=== PATIENT | female | born 1950 | race Caucasian/White ===

== ENCOUNTER 2020-06-17 10:41 | Day surgery (SDC) | payer MEDICARE, SELFPAY ==
--- NOTE | 2020-06-16 11:49 | HO.ANESPROP2 ---
Documented by User: Therese Dacosta 06/16/20 11:49 HPI - Anesthesia Eval Consult details Narrative: 69yo F for Upper Endoscopy and Colonoscopy PMFSH Past Medical History Medical History (Updated 06/16/20 @ 10:24 by Xin Araiza RN) ADD (attention deficit disorder) Anemia Back pain GERD (gastroesophageal reflux disease) Scoliosis Surgical History Surgical History (Updated 06/16/20 @ 10:25 by Xin Araiza, RN) History of esophagogastroduodenoscopy (EGD) History of total abdominal hysterectomy Hx of colonoscopy Hx of cosmetic surgery Hx of gastric bypass Social History Social History Smoking Status: Never smoker Use of substances other than those prescribed or required for medical reasons: No Advance Directives: No Advance Directives Information Provided: Yes Advance Directives on File: No Meds Allergies Allergy/AdvReac Type Severity Reaction Status Date / Time amoxicillin AdvReac aches Verified 06/16/20 10:27 Home Medications Medication Instructions Recorded Confirmed Type Vitamin C 06/16/20 06/16/20 History dextroamphetamine-amphetamine 2 tab PO BID 06/16/20 06/17/20 History [Adderall] ferrous sulfate [iron] 325 mg PO DAILY 06/16/20 06/16/20 History multivitamin 1 tab PO DAILY 06/16/20 06/16/20 History trazodone 1 tab PO BEDTIME 06/16/20 06/16/20 History Exam Exam Date and Time: June 16, 2020 1149 Assessment and Plan Assessment Anesthesia Assessment: Chart Reviewed Documented by User: Jose Lima 06/17/20 12:12 PMFSH Past Medical History Medical History (Updated 06/16/20 @ 10:24 by Xin Araiza RN) ADD (attention deficit disorder) Anemia Back pain GERD (gastroesophageal reflux disease) Scoliosis Surgical History Surgical History (Updated 06/16/20 @ 10:25 by Xin Araiza RN) History of esophagogastroduodenoscopy (EGD) History of total abdominal hysterectomy Hx of colonoscopy Hx of cosmetic surgery Hx of gastric bypass Social History Social History Smoking Status: Never smoker Use of substances other than those prescribed or required for medical reasons: No Advance Directives: No Advance Directives Information Provided: Yes Advance Directives on File: No Meds Allergies Allergy/AdvReac Type Severity Reaction Status Date / Time amoxicillin AdvReac aches Verified 06/16/20 10:27 Home Medications Medication Instructions Recorded Confirmed Type Vitamin C 06/16/20 06/16/20 History dextroamphetamine-amphetamine 2 tab PO BID 06/16/20 06/17/20 History [Adderall] ferrous sulfate [iron] 325 mg PO DAILY 06/16/20 06/16/20 History multivitamin 1 tab PO DAILY 06/16/20 06/16/20 History trazodone 1 tab PO BEDTIME 06/16/20 06/16/20 History Exam Airway Mallampati Class: II TM Dist: >3cm Neck ROM: Full Heart: RRR Assessment and Plan Assessment Anesthesia Assessment: Anesthesia Plan Discussed Final Anesthetic Review NPO: Yes ASA Class: II Final Preanesthetic Review: Consent Obtained/Reviewed Anesthetic Plan Anesthetic Plan: MAC: Disposition: Standard PACU
[2020-06-17 10:49] VITALS: BMI 22.2
[2020-06-17 11:06] VITALS: BP 117/82; PULSE 95; RESP 18; TEMP 36.7; O2SAT 100
[2020-06-17] MEDS: Lactated Ringers 1,000 ML 100 ML IVCONT (11:18)
[2020-06-17 13:26] VITALS: BP 102/64; PULSE 75; RESP 18; TEMP 36.5; O2SAT 99
--- NOTE | 2020-06-17 13:26 | PM.OP ---
Brief Operative Note Date of Service: 06/17/20 Pre-op diagnosis: Iron deficiency anemia Post-op diagnosis: other (Erosive esophagitis, Diverticulosis, Internal hemorrhoids) Procedure: EGD with biopsies, Colonoscopy to cecum and TI Surgeon: Myron Mercado Anesthesia: MAC Estimated blood loss (mL): 4.0 Pathology: other (A. EG Junction at 32cm) Condition: stable Disposition: PACU
[2020-06-17 13:41] VITALS: BP 110/63; PULSE 74; RESP 13; TEMP 36.5; O2SAT 100
--- NOTE | 2020-06-17 14:28 | HO.POSTANES ---
Post Anesthesia Evaluation Post Anesthesia Evaluation Vital Signs: Vital Signs Temp Pulse Resp BP Pulse Ox 06/17/20 13:41 97.7 F 74 13 110/63 100 06/17/20 13:26 97.7 F 75 18 102/64 99 06/17/20 11:06 98.1 F 95 18 117/82 100 Anesthesia: Monitored Mental Status: Awake Pain Control: Satisfactory Nausea/Vomiting: None Hydration: Adequate Anesthesia-Related Issues: No Anes. Related Issues
--- NOTE | 2020-06-17 14:33 | OP_ITS ---
SURGEON: Myron Mercado MD INDICATIONS: The patient presents for evaluation of iron-deficiency anemia. Full consent has been obtained from her for this, including risks of bleeding and perforation. PREOPERATIVE DIAGNOSIS: Iron-deficiency anemia. POSTOPERATIVE DIAGNOSIS: PROCEDURE PERFORMED: Esophagogastroduodenoscopy with biopsies, and colonoscopy to cecum and terminal ileum. ESTIMATED BLOOD LOSS: COMPLICATIONS: ANESTHESIA: Monitored anesthesia care. ASSISTANTS: SPECIMENS: POSTOPERATIVE DIAGNOSES: Iron-deficiency anemia, erosive esophagitis, diverticulosis, and internal hemorrhoids. DESCRIPTION OF PROCEDURE: The patient was placed in the left lateral decubitus position. The Olympus video gastroscope was passed in the posterior oropharynx and upper esophagus under direct vision. The scope was passed slowly to the distal esophagus. The gastroesophageal junction was seen at 32 cm. At this level, was evidence of an erosive esophagitis with friability, erosions, and erythema. There was no definitive evidence of Khan's mucosa nor any lesions. The scope was entered into the stomach. There was a small amount of coffee-grounds material in the stomach. There was a small hiatal hernia. The scope was advanced through the anastomosis from her previous gastric bypass. The anastomosis appeared normal and was widely patent. The small bowel mucosa appeared normal. I did not visualize any sign of anastomotic ulcer. The scope was withdrawn back in the gastric remnant. The gastric remnant mucosa both in the forward viewing and retroflexed positions appeared normal. Scope was withdrawn back into the esophagus. Biopsies were obtained at the area of erosive esophagitis at 32 cm. Proximal to this, the esophageal mucosa appeared normal. The scope was withdrawn from the patient. She was turned around for colonoscopy. The digital rectal exam revealed no abnormalities. The Olympus video pediatric colonoscope was entered into the rectum and advanced easily to the cecum. Once in the cecum, I did identify normal-appearing cecal pouch with appendiceal orifice and a normal-appearing ileocecal valve. The terminal ileum was cannulated and appeared normal. Scope was withdrawn back in the colon. The entire cecum and ileocecal valve appeared normal. The scope was then slowly withdrawn assessing all mucosal surfaces carefully. For the most part, preparation was very good to excellent throughout the colon, although there was some small areas of stool, which were irrigated and suctioned away. I did not visualize any sign of polyps, colitis, nor angiodysplasia. There was a mild amount of sigmoid diverticulosis. In the rectum, scope was retroflexed visualizing internal hemorrhoids, but no other pathology. The scope was straightened out and withdrawn from the patient. She tolerated the procedure well and was returned to the recovery area in stable condition. IMPRESSION: 1. Erosive esophagitis. 2. Hiatal hernia. 3. Normal gastric remnant and anastomosis. 4. Diverticulosis. 5. Internal hemorrhoids. PLAN: The results of the biopsies will be checked. I do suspect her finding of esophagitis is related to bile reflux, but I shall start her on omeprazole 20 mg daily as well as a Carafate suspension. She was advised to resume her iron. I do suspect the iron deficiency is in relation to the findings within the esophagus. I would recommend a repeat colonoscopy in 5 years for further screening given the previous history of tubular adenomas. She was advised to see me in 2 to 3 months for a followup visit as well. This has been discussed with her . She is also advised to avoid all aspirin and NSAIDs. MD WILLAM Juarez/ANTONINO / [phone]
== END 2020-06-17 14:15 | disposition home or self-care (01) ==
PROVIDERS: PCP Family Medicine; Visit Provider Internal Medicine
PROC: (CPT 45378; principal; 2020-06-17 11:50)
DX: D50.9 Iron deficiency anemia, unspecified (principal); Z86.010 Personal history of colon polyps; K57.30 Diverticulosis of large intestine without perforation or abscess without bleeding; K64.8 Other hemorrhoids; K21.9 Gastro-esophageal reflux disease without esophagitis; K22.10 Ulcer of esophagus without bleeding; K44.9 Diaphragmatic hernia without obstruction or gangrene; Z98.84 Bariatric surgery status; F98.8 Other specified behavioral and emotional disorders with onset usually occurring in childhood and adolescence; M41.9 Scoliosis, unspecified; Z98.0 Intestinal bypass and anastomosis status
CPT/HCPCS: 45378; 43239; 88305

== ENCOUNTER 2024-11-05 16:56 | Emergency (ER) | payer MEDICARE, SELFPAY ==
--- NOTE | ~2024-11-05 | CT_ITS ---
CLINICAL HISTORY: lower abdominal pain. black stool CT abdomen and pelvis with and without contrast Comparison: None Findings: No acute finding in the partially visualized lung bases. Mild mesenteric edema and small volume free fluid in the abdomen and pelvis. No bowel obstruction. Moderate colonic fecal retention. Diffuse colonic diverticulosis. No findings of diverticulitis. No acute finding of the solid abdominal visceral structures. Normal gallbladder and bile ducts. No aortic aneurysm. No fracture or suspicious bone lesion. IMPRESSION: Colonic fecal retention without evidence of acute colitis or obstruction. Small volume free fluid in the abdomen is nonspecific. This document has been electronically signed by: Raphael Pineda MD on 11/06/2024 00:21:33
--- NOTE | 2024-11-05 17:12 | ED.ABDPAIN ---
HPI - Abdominal Pain General Chief Complaint: GI Bleed Stated Complaint: abd pain, abn stool Time Seen by Provider: 11/05/24 21:30 Source: patient Mode of arrival: ambulatory Limitations: no limitations History of Present Illness ED Provider: Dmitri Kate HPI narrative: 74-year-old female history of gastritis, scoliosis, ADHD and gastric bypass presents to ED for lower abdominal pain and black stool. patient is afraid the black stool is blood. Patient denies being on any blood thinners. Patient states due to her having lower abdominal pain yesterday morning she took Pepto-Bismol then had 2 episodes of black stool. Patient denies any recent trauma. Related Data Home Medications ?Medication ?Instructions ?Recorded ?Confirmed Vitamin C 06/16/20 06/16/20 dextroamphetamine-amphetamine 20 2 tab PO BID 06/16/20 06/17/20 mg tablet (Adderall) ferrous sulfate 325 mg (65 mg 325 mg PO DAILY 06/16/20 06/16/20 iron) tablet (iron) multivitamin 1 tab PO DAILY 06/16/20 06/16/20 trazodone 150 mg tablet 1 tab PO BEDTIME 06/16/20 06/16/20 Allergies Allergy/AdvReac Type Severity Reaction Status Date / Time No Known Allergies Allergy Verified 11/05/24 17:16 Review of Systems Review of Systems Lower abdominal pain, black stool Yes all other systems are reviewed and are negative PMF Past Medical History Medical History (Updated 11/07/24 @ 00:00 by Clarita Soares) Back pain Scoliosis Anemia GERD (gastroesophageal reflux disease) ADD (attention deficit disorder) Surgical History (Updated 06/16/20 @ 10:25 by Xin Araiza RN) Hx of cosmetic surgery History of total abdominal hysterectomy Hx of gastric bypass History of esophagogastroduodenoscopy (EGD) Hx of colonoscopy Physical Exam ED Vital Signs: Vital Signs - 24 hr 11/05/24 17:13 11/05/24 17:14 11/05/24 23:13 Temperature 98.4 F 98.1 F 98.1 F Pulse Rate 97 66 80 Respiratory Rate 97 H 13 19 Blood Pressure 136/99 H 150/87 H 135/78 Pulse Oximetry 97 97 99 Oxygen Delivery Method Room Air Room Air Room Air BMI result Body Mass Index 19.9 Const General: cooperative, healthy appearing, comfortable, no acute distress, well developed, alert, awake and Physically active Orientation/consciousness: patient oriented x3 HENME Head: Yes normal to inspection, Yes No palpable skull fracture present, Yes normocephalic, Yes atraumatic and No abrasion Eyes General: appearance normal, both eyes and all related structures Neck Neck: Yes normal visual inspection, Yes full ROM, Yes no lymphadenopathy, Yes no meningeal signs, Yes trachea midline, Yes supple, No anterior neck swelling and No tender Chest Chest palpation & inspection: normal inspection of the chest and normal palpation of entire chest wall Resp Effort & Inspection: normal respiratory effort and able to speak in complete sentences Auscultation: clear to auscultation bilaterally Cardio Jugular venous distension: no JVD Heart sounds: S1 normal heart sound present and S2 normal heart sound present GI Other: rectal exam negative for any black stool, bright red blood, or melena Inspection: Yes normal to inspection Palpation (GI): Soft to palpation, not firm, Tenderness to palpation present (GI) in the LLQ and in the RLQ, no guarding and not rigid General: Yes no CVA tenderness Back/Spine/Pelvis Back: no CVA tenderness and No back tenderness Skin General skin exam: no rashes or lesions noted, elasticity normal and turgor normal Neuro General: patient oriented x3, gait normal, tone normal, moves all extremities, Normal light touch and pain sensation, no meningeal signs, no focal motor deficits, CN's II-XI intact bilaterally and normal sensation to monofilament Extrem General: Yes normal to inspection, Yes full ROM and Yes capillary refill normal Psych Appearance: grossly normal, well kempt and not disheveled Course Course Course Narrative: This is a Rapid Medical Exam performed in triage by Leena Davis PA-C. Full HPI, ROS and PE to be performed by primary ED provider. 74 yo F w/PMHx anemia, GERD, ADD, s/p gastric bypass (about 20yrs ago) presenting to the ED c/o abdominal pain x this AM w/coffee ground/black stool x2 episodes. +nausea/vomiting. PE: abdomen soft w/mild lower ttp. no rebound or guarding Plan: labs, UA, occult stool Medical Decision Making Medical Decision Making MDM Narrative: 74-year-old female presents to the ED for lower abdominal pain and black stool. Patient admits to using Pepto-Bismol. Patient has history of gastritis. Patient has history of GERD. Patient is sent for abdominal CT scan. Patient receiving fluids. Protonix ordered. 12:36am: Patient's repeat H and H is stable. Patient did not have any vomiting blood or rectal bleeding episode generally ED. occurred stool guaiac is negative. CT scan GI bleed negative for any colitis or active bleeding. Just shows small free fluid nonspecific. Abdomen is benign. Patient's vital signs stable. patient informed to follow up with senior reliability engineer and primary care provider. Not suspecting GI bleed. 1:40am: Patient explained worrisome signs and informed to return to the ED immediately. Abdomen is benign nontender. Patient was sleeping comfortably in the bed. Not suspecting abdominal perforation, peritonitis, GI bleed, toxic megacolon, or any other life-threatening etiology. Not suspecting [place]. not suspecting small bowel obstruction. Ct Scan reviewed with Dr. Tolentino who states patient is not having GI bleed and small free fluid in CT scan does not indicate GI Bleed. patient explained worrisome signs and informed to return to the ED immediately. Pepto-Bismol can cause black stool Differential Diagnosis Differential Diagnoses: The differential diagnosis associated with the presentation includes ( colitis, GI bleed) Admission/Observation Consideration of admission/observation: Escalation of care including admission/observation considered Lab Data MDM Lab Attestation statement: I reviewed the patient's lab results. 11/05/24 22:48 11/05/24 17:49 Labs: Lab Results 11/05/24 11/05/24 11/05/24 Range/Units 17:49 22:05 22:48 WBC 7.6 8.0 (4.8-10.8) X10*3/uL RBC 4.76 4.32 (4.20-5.50) X10*6/uL Hgb 14.4 13.2 (12.0-16.0) g/dl Hct 44.4 38.5 (37.0-47.0) % MCV 93.3 89.1 (80.0-98.0) fL MCH 30.3 30.6 (27.0-33.0) pg MCHC 32.4 34.3 (31.0-35.0) g/dl RDW 13.2 13.2 (11.0-16.0) % Plt Count 293 270 (160-400) X10*3/uL MPV 10.1 10.1 (9.4-12.3) fL Immature Gran % (Auto) 0.4 0.4 (0.0-0.4) % Neut % (Auto) 80.2 H 83.3 H (45-73) % Lymph % (Auto) 10.1 L 7.5 L (20-40) % [place] % (Auto) 7.7 7.4 (2-11) % Eos % (Auto) 1.2 1.0 (0-4) % Baso % (Auto) 0.4 0.4 (0-2) % Lymph # (Auto) 0.8 L 0.6 L (1.2-4.9) X10*3/uL [place] # (Auto) 0.6 0.6 (0.1-1.2) X10*3/uL Eos # (Auto) 0.1 0.1 (0.0-0.4) X10*3/uL Baso # (Auto) 0.0 0.0 (0.0-0.2) X10*3/uL Abs Immat Gran (auto) 0.03 0.03 (0.00-0.03) X10*3/uL Absolute Neuts (auto) 6.1 6.6 (2.0-8.3) x10*3/uL Absolute Nucleated RBC 0.000 0.000 (0.0-0.012) X10*3/uL Nucleated RBC % (auto) 0.0 0.0 (0.0-0.2) /100WBC Sodium 140 (135-145) mmol/L Potassium 4.8 (3.3-5.1) mmol/L Chloride 106 (96-108) mmol/L Carbon Dioxide 27 (22-29) mmol/L Anion Gap 12 (12-20) BUN 15 (9-16) mg/dL Creatinine 0.63 (0.5-1.4) mg/dL Estim Creat Clear Calc 67.0 Estimated GFR > 60 Random Glucose 135 H (60-115) mg/dL Calcium 10.2 (8.4-10.2) mg/dL Magnesium 1.7 (1.6-2.6) mg/dL Total Bilirubin 0.4 (0.0-1.0) mg/dL Direct Bilirubin 0.1 (0.0-0.5) mg/dL AST 20 (5-31) U/L ALT 13 (0-31) U/L Alkaline Phosphatase 196 H (39-117) U/L Total Protein 6.9 (6.5-8.0) g/dL Albumin 4.2 (3.5-5.0) g/dL Lipase 7 L (8-78) U/L Urine Color Urine Appearance Urine pH (5.0-9.0) Ur Specific [place] (1.005-1.025) Urine Protein (Neg-Trace) mg/dL Urine Glucose (UA) (Negative) mg/dL Urine Ketones (Negative) mg/dL Urine Blood (Negative) Urine Nitrite (Negative) Ur Leukocyte Esterase (Negative) Stool Occult Blood NEGATIVE (NEGATIVE) 11/05/24 Range/Units 23:49 WBC (4.8-10.8) X10*3/uL RBC (4.20-5.50) X10*6/uL Hgb (12.0-16.0) g/dl Hct (37.0-47.0) % MCV (80.0-98.0) fL MCH (27.0-33.0) pg MCHC (31.0-35.0) g/dl RDW (11.0-16.0) % Plt Count (160-400) X10*3/uL MPV (9.4-12.3) fL Immature Gran % (Auto) (0.0-0.4) % Neut % (Auto) (45-73) % Lymph % (Auto) (20-40) % [place] % (Auto) (2-11) % Eos % (Auto) (0-4) % Baso % (Auto) (0-2) % Lymph # (Auto) (1.2-4.9) X10*3/uL [place] # (Auto) (0.1-1.2) X10*3/uL Eos # (Auto) (0.0-0.4) X10*3/uL Baso # (Auto) (0.0-0.2) X10*3/uL Abs Immat Gran (auto) (0.00-0.03) X10*3/uL Absolute Neuts (auto) (2.0-8.3) x10*3/uL Absolute Nucleated RBC (0.0-0.012) X10*3/uL Nucleated RBC % (auto) (0.0-0.2) /100WBC Sodium (135-145) mmol/L Potassium (3.3-5.1) mmol/L Chloride (96-108) mmol/L Carbon Dioxide (22-29) mmol/L Anion Gap (12-20) BUN (9-16) mg/dL Creatinine (0.5-1.4) mg/dL Estim Creat Clear Calc Estimated GFR Random Glucose (60-115) mg/dL Calcium (8.4-10.2) mg/dL Magnesium (1.6-2.6) mg/dL Total Bilirubin (0.0-1.0) mg/dL Direct Bilirubin (0.0-0.5) mg/dL AST (5-31) U/L ALT (0-31) U/L Alkaline Phosphatase (39-117) U/L Total Protein (6.5-8.0) g/dL Albumin (3.5-5.0) g/dL Lipase (8-78) U/L Urine Color Yellow Urine Appearance Clear Urine pH 6.5 (5.0-9.0) Ur Specific [place] >= 1.030 H (1.005-1.025) Urine Protein Negative (Neg-Trace) mg/dL Urine Glucose (UA) Negative (Negative) mg/dL Urine Ketones 15 (Negative) mg/dL Urine Blood Negative (Negative) Urine Nitrite Negative (Negative) Ur Leukocyte Esterase Negative (Negative) Stool Occult Blood (NEGATIVE) Independent Interpretation I performed an independent interpretation of an: CT Scan Radiology Impression Discussion of test interpretation with radiology: I have reviewed the radiologist's reading. Independent Historian Clinical information obtained from an independent historian. History obtained from or confirmed by: Other Medications Administered Discontinued Medications Generic Name Dose Route Start Last Admin Trade Name Freq PRN Reason Stop Dose Admin Sodium Chloride 1,000 mls @ 999 mls/hr 11/05/24 22:25 11/06/24 00:51 Ns IV 11/05/24 23:25 Infused .Q1H1M STA Infusion Iohexol 100 ml 11/05/24 23:08 11/05/24 23:08 Iohexol 350 Mg/Ml 100 Ml Infus..Btl IV 11/05/24 23:09 80 ml ONCE ONE Administration Pantoprazole Sodium 40 mg 11/05/24 22:40 11/05/24 23:10 Pantoprazole Sodium 40 Mg/10 Ml Vial IVPUSH 11/05/24 22:41 40 mg ONCE ONE Administration Discharge Plan Discharge Clinical Impression: Abdominal pain Patient Disposition: Home, Self-Care Instructions: Abdominal Pain (ED) Additional Instructions: recommend follow up with primary care provider and senior reliability engineer. Return to the ED immediately for worsening abdominal pain, fever, chills, bloody stool, weakness, dizziness, fever, chills, blood in urine, vomiting blood, or any other concerning symptoms. CT abdomen and pelvis with and without contrast Comparison: None Findings: No acute finding in the partially visualized lung bases. Mild mesenteric edema and small volume free fluid in the abdomen and pelvis. No bowel obstruction. Moderate colonic fecal retention. Diffuse colonic diverticulosis. No findings of diverticulitis. No acute finding of the solid abdominal visceral structures. Normal gallbladder and bile ducts. No aortic aneurysm. No fracture or suspicious bone lesion. IMPRESSION: Colonic fecal retention without evidence of acute colitis or obstruction. Small volume free fluid in the abdomen is nonspecific. This document has been electronically signed by: Raphael Pineda MD on 11/06/2024 00:21:33 Dictated By: Raphael Pineda MD Signed By: <Electronically signed by Raphael Pineda MD in [place]> 11/06/24 0022 Prescriptions: No Action multivitamin Tablet 1 tab PO DAILY trazodone 150 mg tablet 1 tab PO BEDTIME ferrous sulfate [iron] 325 mg (65 mg iron) Tablet 325 mg PO DAILY dextroamphetamine-amphetamine [Adderall] 20 mg tablet 2 tab PO BID Vitamin C Referrals: [facility] [Provider Group] ( abdominal pain. History of GERD) Stand Alone Forms: Work/School Release Interventions: ED Discharge Assessment Last Done: 11/06/24 02:09 Discharge Date/Time: 11/06/24 06:25 Print Language: [employer]
[2024-11-05 17:13] VITALS: BP 136/99; PULSE 97; RESP 97; TEMP 36.9; O2SAT 97; BMI 19.9
[2024-11-05 17:14] VITALS: BP 150/87; PULSE 66; RESP 13; TEMP 36.7; O2SAT 97
[2024-11-05 17:52] LABS: MANUAL DIFF FLAG NO
[2024-11-05 17:59] LABS: Basophils Percent Auto 0.4 % (0-2); Eosinophils Absolute Auto 0.1 X10*3/uL (0.0-0.4); Eosinophils Percent Auto 1.2 % (0-4); Hematocrit 44.4 % (37.0-47.0); Hemoglobin 14.4 g/dl (12.0-16.0); Imm Gran Abs Auto 0.03 X10*3/uL (0.00-0.03); Imm Gran Pct Auto 0.4 % (0.0-0.4); Lymphocytes Absolute Auto 0.8 X10*3/uL (1.2-4.9); Lymphocytes Percent Auto 10.1 % (20-40); Mean Corpuscular HGB Conc 32.4 g/dl (31.0-35.0); Mean Corpuscular Hemoglobin 30.3 pg (27.0-33.0); Mean Corpuscular Volume 93.3 fL (80.0-98.0); Mean Platelet Volume 10.1 fL (9.4-12.3); Monocytes Absolute Auto 0.6 X10*3/uL (0.1-1.2); Monocytes Percent Auto 7.7 % (2-11); Neutrophils Absolute Auto 6.1 x10*3/uL (2.0-8.3); Neutrophils Percent Auto 80.2 % (45-73); Platelet Count 293 X10*3/uL (160-400); Red Blood Count 4.76 X10*6/uL (4.20-5.50); Red Cell Distribution Width 13.2 % (11.0-16.0); White Blood Count 7.6 X10*3/uL (4.8-10.8)
[2024-11-05 18:10] LABS: Alanine Aminotransferase 13 U/L (0-31); Albumin Level 4.2 g/dL (3.5-5.0); Alkaline Phosphatase 196 U/L (39-117); Anion Gap 12 (12-20); Aspartate Amino Transferase 20 U/L (5-31); Bilirubin Direct 0.1 mg/dL (0.0-0.5); Bilirubin Total 0.4 mg/dL (0.0-1.0); Blood Urea Nitrogen 15 mg/dL (9-16); Calcium 10.2 mg/dL (8.4-10.2); Carbon Dioxide 27 mmol/L (22-29); Chloride 106 mmol/L (96-108); Estimated Glomerular Filt Rate > 60; Glucose Random 135 mg/dL (60-115); Lipase 7 U/L (8-78); Magnesium 1.7 mg/dL (1.6-2.6); Potassium 4.8 mmol/L (3.3-5.1); Sodium 140 mmol/L (135-145); Total Protein 6.9 g/dL (6.5-8.0)
[2024-11-05 22:47] LABS: OBS Int Ctl Valid YES; OBS1 NEGATIVE (NEGATIVE)
[2024-11-05] MEDS: 0.9 % Sodium Chloride 1,000 ML 999 ML IV (22:48)
[2024-11-05 22:57] LABS: MANUAL DIFF FLAG NO
[2024-11-05 23:01] LABS: Basophils Percent Auto 0.4 % (0-2); Eosinophils Absolute Auto 0.1 X10*3/uL (0.0-0.4); Hematocrit 38.5 % (37.0-47.0); Hemoglobin 13.2 g/dl (12.0-16.0); Imm Gran Abs Auto 0.03 X10*3/uL (0.00-0.03); Imm Gran Pct Auto 0.4 % (0.0-0.4); Lymphocytes Absolute Auto 0.6 X10*3/uL (1.2-4.9); Lymphocytes Percent Auto 7.5 % (20-40); Mean Corpuscular HGB Conc 34.3 g/dl (31.0-35.0); Mean Corpuscular Hemoglobin 30.6 pg (27.0-33.0); Mean Corpuscular Volume 89.1 fL (80.0-98.0); Mean Platelet Volume 10.1 fL (9.4-12.3); Monocytes Absolute Auto 0.6 X10*3/uL (0.1-1.2); Monocytes Percent Auto 7.4 % (2-11); Neutrophils Absolute Auto 6.6 x10*3/uL (2.0-8.3); Neutrophils Percent Auto 83.3 % (45-73); Platelet Count 270 X10*3/uL (160-400); Red Blood Count 4.32 X10*6/uL (4.20-5.50); Red Cell Distribution Width 13.2 % (11.0-16.0)
[2024-11-05] MEDS: iohexoL 350 MG/ML 100 ML INFUS..BTL IV (23:08)
[2024-11-05] MEDS: Pantoprazole Sodium 40 MG/10 ML VIAL IVPUSH (23:10)
[2024-11-05 23:13] VITALS: BP 135/78; PULSE 80; RESP 19; TEMP 36.7; O2SAT 99
[2024-11-05 23:57] LABS: Appearance Urine Clear; Color Urine Yellow; Glucose Urine UA Negative (Negative); Leukocyte Esterase Urine Negative (Negative); Nitrite Urine Negative (Negative); PH 6.5 (5.0-9.0); Specific Gravity - Urine >= 1.030 (1.005-1.025); Urine Blood Negative (Negative); Urine Ketones 15 mg/dL (Negative); Urine Protein Negative (Neg-Trace)
[2024-11-06 02:00] VITALS: BP 107/71; PULSE 82; RESP 16; TEMP 36.7; O2SAT 96
[2024-11-06 02:09] VITALS: BP 107/71; PULSE 82; RESP 16; TEMP 36.7; O2SAT 96
== END 2024-11-06 06:25 | disposition home or self-care (01) ==
PROVIDERS: Physician Assistant; Emergency Provider Emergency Medicine; PCP Family Medicine
DX: R10.9 Unspecified abdominal pain (principal); R11.0 Nausea; Z98.84 Bariatric surgery status; Z79.899 Other long term (current) drug therapy
CPT/HCPCS: 36415; 74178; 80048; 80076; 81003; 82272; 83690; 83735; 85025; 96361; 96374; 99284; J2470; Q9967

== ENCOUNTER → 2024-11-05 22:40 | Outpatient (BNV) | payer MEDICARE, SELFPAY | PROVIDERS: Emergency Provider Emergency Medicine; PCP Family Medicine; Visit Provider Radiology Diagnostic Radiology | DX: K56.41 Fecal impaction (principal) | CPT/HCPCS: 74178 ==

== ENCOUNTER 2025-04-23 10:48 | Day surgery (SDC) | payer MEDICARE, SELFPAY ==
--- OUTSIDE RECORDS SUMMARY | 2024-03-11 17:35 | XMS_ITS | Encounter Summary ---
Author Organization [facility] Address [address] [place] [address] [place] [phone] Phone Care Team Providers Care Miner Helper Name Role Phone Lucien Woo MD Unavailable Heather Vieyra MD Primary Care Provider + Encounter Details Date Type Department Care Team (Late st Contact Info) Description 03/11/2024 5:35 PM EDT Hospital Encounter [facility] [address] [place] [id number] [address], [address] [place] [address] [email or web address] Social History Tobacco Use Types Packs/Day Years Used Date Smoking Tobacco: Former Cigarettes 1 10 Smokeless Tobacco: Never Alcohol Use Standard Drinks/Week Comments Yes 0 (1 standard drink = 0.6 oz pur e alcohol) Education Answer Date Recorded Are you interested in more education? Not on corby e 11/23/2022 Are you concerned about learning? Not on file 11/23/2022 No 11/23/2022 No 11/23/2022 Digital Access Answer Date Recorded No 12/24/2022 No 12/24/2022 Reliable internet access at home? Not on file 12/24/2022 Device with a working camera? Not on file Intimate Partner Violence Answer Date R ecorded Are you denied basic needs s uch as food, clothing, or medical care? No 11/12/2024 In the past 12 months have y ou been in a relationship with a person who hurts, threatens, or tries to control you? No 11/12/2024 Are you denied basic needs s uch as food, clothing, or medical care? No 11/12/2024 In the past 12 months have y ou been in a relationship with a person who hurts, threatens, or tries to control you? No 11/12/2024 Comments No Sex and Gender Information Value Date Recorded Sex Assigned at Female 06/19/2018 6:04 PM EST Legal Sex Female 10:02 PM EDT Gender Identity Female 06/19/2018 6:04 PM EST Sexual Orientation Straight 06/19/2018 6: 04 PM EST documented as of this encounter Functional Status * Calculated C-SSRS Risk Score (Lifetime/Recent) Answer Date of Assessment Author No Risk Indicated 11/12/2024 7:58 PM EDT Janel Burk RN * [place] Suicide Severity Rating Scale (Screener/Recent Self-Report) Question Answer Date of Assessment Author 1. Wish to be (Past 1 Month) No 025 7:58 PM EDT Janel Rivera RN 2. Non-Specific Active Suici malvin Thoughts (Past 1 Month) No 11/12/2024 7:58 PM EDT Tara Rivera ra RN 6. Suicidal Behavior (Lifetime) No 7:58 PM EDT Janel Rivera RN documented as of this encounter Plan of Treatment Not on file documented as of this encounter Procedures Procedure Name Priority Date/Time Associated Diagnosis Comments XR KNEE 4 OR MORE VIEWS (RIGHT) Urgent/patient waiting 03/11/2024 5:57 PM EDT Acute pain of right knee documented in this encounter Results * XR KNEE 4 OR MORE VIEWS (RIGHT) (03/11/2024 5:57 PM EDT) Anatomical Region Laterality Modality Knee Right Computed Radiogr aphy 03/11/2024 6:12 PM EDT Impressions 03/11/2024 6:15 PM EDT No fracture or dislocation. Narrative 03/11/2024 6:15 PM EDT XR KNEE 4 OR MORE VIEWS (RIGHT) Referring clinician's provided indication for this examination in Epic: Pain; Trauma COMPARISON: None FINDINGS: Right Knee: No fracture. Normal alignment. Diffuse osteopenia. Mild age-related degenerative changes in the left knee joint. Procedure Note Jose Fowler MD, CRYSTAL - 03/11/2024 XR KNEE 4 OR MORE VIEWS (RIGHT) Referring clinician's provided indication for this examination in Epic:Pain; Trauma COMPARISON: None FINDINGS: Right Knee: No fracture. Normal alignment. Diffuse osteopenia. Mildage-related degenerative changes in the left knee joint. IMPRESSION: No fracture or dislocation. Mavis Crow BRAID CUTTER IMG XR LOWER EXTREMITY Fin al Result documented in this encounter Visit Diagnoses Not on filedocumented in this encounter Care Teams Miner Helper Relationship Specialty Start Date End Date Heather Vieyra MD [email or web address] - General Family Medicine 03/11/24 09/01/24 Lucien Woo MD [email or web address] LMR Provider 05/16/17 documented as of this encounter Additional Source Comments The information contained in this document represents components of the legal health record. It is not the complete legal health record.[facility]
[2025-04-21 14:07] VITALS: BMI 18.9
--- NOTE | 2025-04-22 13:32 | HO.ANESPROP2 ---
HPI - Anesthesia Eval Consult details Narrative: 74 yr old female for colonoscopy PMF Past Medical History Medical History (Updated 11/07/24 @ 00:00 by Clarita Soares) Back pain Scoliosis Anemia GERD (gastroesophageal reflux disease) ADD (attention deficit disorder) Surgical History Surgical History (Updated 06/16/20 @ 10:25 by Xin Araiza RN) Hx of cosmetic surgery History of total abdominal hysterectomy Hx of gastric bypass History of esophagogastroduodenoscopy (EGD) Hx of colonoscopy Meds Allergies Allergy/AdvReac Type Severity Reaction Status Date / Time No Known Allergies Allergy Verified 11/05/24 17:16 Home Medications ?Medication ?Instructions ?Recorded ?Confirmed ?Last Taken ?Type ferrous sulfate 325 mg (65 mg 325 mg PO DAILY 06/16/20 04/21/25 Unknown History iron) tablet (iron) multivitamin 1 tab PO DAILY 06/16/20 04/21/25 Unknown History trazodone 150 mg tablet 1 tab PO BEDTIME 06/16/20 04/21/25 Unknown History acetaminophen 325 mg tablet 650 mg PO Q6H PRN Pain 04/21/25 04/21/25 Unknown History ascorbic acid (vitamin C) 500 mg 500 mg PO DAILY 04/21/25 04/21/25 Unknown History tablet (Vitamin C) cholecalciferol (vitamin D3) 25 25 mcg PO DAILY 04/21/25 04/21/25 Unknown History mcg (1,000 unit) capsule (Vitamin D3) dexmethylphenidate 40 mg 40 mg PO QAM 04/21/25 04/21/25 Unknown History capsule,extended release [id number] duloxetine 60 mg capsule,delayed 60 mg PO DAILY 04/21/25 04/21/25 Unknown History release ibuprofen 200 mg tablet 400 mg PO Q8H PRN Pain 04/21/25 04/21/25 Unknown History naproxen sodium 220 mg tablet 220 mg PO Q12H PRN Pain 04/21/25 04/21/25 Unknown History (Aleve) omeprazole 20 mg capsule,delayed 20 mg PO DAILY 04/21/25 04/21/25 Unknown History release topiramate 25 mg tablet 12.5 - 25 mg PO BEDTIME 04/21/25 04/21/25 Unknown History Exam Height,Weight and Vital Signs: Height 5 ft 6.5 in Weight 53.796 kg
--- OUTSIDE RECORDS SUMMARY | 2025-04-22 15:31 | XMS_ITS | Patient Health Record ---
Author Organization [facility] Address [address] [place] [id number] Care Team Providers Care Fitness Management Director Name Role Phone Heather Vieyra Primary Care Provider Myron Butler [phone] Allergies Allergen (clinical drug ingredient) Drug/Non Drug Allergy documented on EMR Reaction Allergy Type Onset Date Status amoxicillin Amoxicillin achey Drug Allergy Act renée Reason For Referral No Information Medications Medication SIG (Take, Route, Frequency, Duration) Notes Start Date End Date Status Aleve 220 MG 1 tablet with food o r milk as needed Orally every 12 hrs Active Vitamin D-3 25 MCG (1000 UT) 1 capsule O rally Once a day Active Dexmethylphenidate HCl ER 40 MG 1 capsule in the morning Orally Once a day Active DULoxetine HCl 60 MG 1 capsule Orally On ce a day Active Multi Vitamin/Minerals Active Vitamin C Active Ibuprofen 200 MG 1 tablet with food o r milk as needed Orally Three times a day Active Topiramate 25 MG Oral for 37 A ctive Tylenol 325 MG 1 tablet as needed Orally every 6 hrs Active Omeprazole 20 MG TAKE 1 CAPSULE BY MOUTH EVERY MORNING for 90 Active traZODone HCl 150 MG 1 tablet at bedtime Orally as directed Active Iron 325 (65 Fe) MG Orally Active Immunizations Vaccine Route Administration Date Status Comme nts Influenza Unknown 05/15/2022 Administered Influenza Unknown 04/14/2024 Administered Problems Problem Type SNOMED Code ICD Code Onset Dates Problem Status W/U Status Risk Notes Problem Colon cancer screening (124962755) Colon cancer screening (Z12.11) Active confirmed Problem Constipation (38208658) Constipation (K59.00) Active confirmed Problem Iron deficiency anemia (63942802) Iron deficiency anemia (D50.9) Active confirmed Problem Preprocedural examination (096404727437327) Preprocedural examination (Z01.818) Active confirmed Problem Erosive esophagitis (69615829) Erosive esophagitis (K22.10) Active confirmed Problem 24359320 Constipation, unspecified constipation type (K59.00) Active confirmed Problem Gastroesophageal reflux disease (506647267) GERD (gastroesophagea l reflux disease) (K21.9) Active confirmed Problem History of adenomatous polyp of colon (429596477) History of adenomatous polyp of colon (Z86.0101) Active confirmed Vital Signs Temperature 97.8 degrees Fahrenheit 01/20/2025 Blood pressure diastolic 01 mm Hg 01/20/2025 Height 66.5 in 01/20/2025 Blood pressure systolic 001 mm Hg 01/20/2025 Weight 118.6 lbs 01/20/2025 BMI 18.85 kg/m2 01/20/2025 Procedures Procedure Date Ordered Date Performed Result Body Sit e COLONOSCOPY 01/20/2025 N/A Encounters Encounter Location Date Provider Diagnosis [facility] [address] [place] [phone] 01/20/2025 Myron Mercado History of adenomato us polyp of colon Z86.0101 ; GERD (gastroesophageal reflux disease) K21.9 ; Colon cancer screening Z12.11 ; Preprocedural examination Z01.818 and Constipation K59.00 [facility] [address] [place] [phone] 12/09/2024 Myron Mercado Assessments Encounter Date Diagnosis (ICD Code) Assessment Notes Treatment Notes Treatment Clinical Notes Section Notes 01/20/2025 GERD (gastroesophageal reflux disease) (ICD-10 - K21.9) Overall, Levar appears well and is not having any new or worrisome GI complaints. Her bowel movements seem to be somewhat more regular than in the past when she was having significant constipation. Given her previous history of tubular adenomas of the colon and her last colonoscopy being just about 5 years ago, I did recommend a follow-up colonoscopy for further screening purposes. We did review the rationale for this in regard to colon cancer prevention. Full consent has been obtained from her for the procedure, including risks of bleeding and perforation. The procedure will be done with monitored anesthesia care. She will have a 2-day prep to achieve a good cleanout as she has had problems in the past with a single day prep resulting in a poor cleanout and suboptimal colonoscopy. She was given the below instructions regarding adjustment of her medication for the procedure. Her previous history of reflux and esophagitis seem to be clinically stable on her current regimen of her PPI. She is not having any symptoms or other problems to suggest the need for repeat upper endoscopy at this time. While she has had her previous bariatric surgery and theoretically does not make much, if any, acid in her stomach, I shall leave her on the PPI as that seems to be working well for her at this time. Levar was comfortable with this plan. Thank you again for allowing me to participate in Levar's care. I shall continue to keep you advised of her progress. 01/20/2025 History of adenomatous polyp of colon (ICD-10 - Z86.0101) Overall, Levar appears well and is not having any new or worrisome GI complaints. Her bowel movements seem to be somewhat more regular than in the past when she was having significant constipation. Given her previous history of tubular adenomas of the colon and her last colonoscopy being just about 5 years ago, I did recommend a follow-up colonoscopy for further screening purposes. We did review the rationale for this in regard to colon cancer prevention. Full consent has been obtained from her for the procedure, including risks of bleeding and perforation. The procedure will be done with monitored anesthesia care. She will have a 2-day prep to achieve a good cleanout as she has had problems in the past with a single day prep resulting in a poor cleanout and suboptimal colonoscopy. She was given the below instructions regarding adjustment of her medication for the procedure. Her previous history of reflux and esophagitis seem to be clinically stable on her current regimen of her PPI. She is not having any symptoms or other problems to suggest the need for repeat upper endoscopy at this time. While she has had her previous bariatric surgery and theoretically does not make much, if any, acid in her stomach, I shall leave her on the PPI as that seems to be working well for her at this time. Levar was comfortable with this plan. Thank you again for allowing me to participate in Levar's care. I shall continue to keep you advised of her progress. 01/20/2025 Colon cancer screening (ICD-10 - Z12.11) Overall, Levar appears well and is not having any new or worrisome GI complaints. Her bowel movements seem to be somewhat more regular than in the past when she was having significant constipation. Given her previous history of tubular adenomas of the colon and her last colonoscopy being just about 5 years ago, I did recommend a follow-up colonoscopy for further screening purposes. We did review the rationale for this in regard to colon cancer prevention. Full consent has been obtained from her for the procedure, including risks of bleeding and perforation. The procedure will be done with monitored anesthesia care. She will have a 2-day prep to achieve a good cleanout as she has had problems in the past with a single day prep resulting in a poor cleanout and suboptimal colonoscopy. She was given the below instructions regarding adjustment of her medication for the procedure. Her previous history of reflux and esophagitis seem to be clinically stable on her current regimen of her PPI. She is not having any symptoms or other problems to suggest the need for repeat upper endoscopy at this time. While she has had her previous bariatric surgery and theoretically does not make much, if any, acid in her stomach, I shall leave her on the PPI as that seems to be working well for her at this time. Levar was comfortable with this plan. Thank you again for allowing me to participate in Levar's care. I shall continue to keep you advised of her progress. 01/20/2025 Preprocedural examination (ICD-10 - Z01.818) Overall, Levar appears well and is not having any new or worrisome GI complaints. Her bowel movements seem to be somewhat more regular than in the past when she was having significant constipation. Given her previous history of tubular adenomas of the colon and her last colonoscopy being just about 5 years ago, I did recommend a follow-up colonoscopy for further screening purposes. We did review the rationale for this in regard to colon cancer prevention. Full consent has been obtained from her for the procedure, including risks of bleeding and perforation. The procedure will be done with monitored anesthesia care. She will have a 2-day prep to achieve a good cleanout as she has had problems in the past with a single day prep resulting in a poor cleanout and suboptimal colonoscopy. She was given the below instructions regarding adjustment of her medication for the procedure. Her previous history of reflux and esophagitis seem to be clinically stable on her current regimen of her PPI. She is not having any symptoms or other problems to suggest the need for repeat upper endoscopy at this time. While she has had her previous bariatric surgery and theoretically does not make much, if any, acid in her stomach, I shall leave her on the PPI as that seems to be working well for her at this time. Levar was comfortable with this plan. Thank you again for allowing me to participate in Levar's care. I shall continue to keep you advised of her progress. 01/20/2025 Constipation (ICD-10 - K59.00) Overall, Levar appears well and is not having any new or worrisome GI complaints. Her bowel movements seem to be somewhat more regular than in the past when she was having significant constipation. Given her previous history of tubular adenomas of the colon and her last colonoscopy being just about 5 years ago, I did recommend a follow-up colonoscopy for further screening purposes. We did review the rationale for this in regard to colon cancer prevention. Full consent has been obtained from her for the procedure, including risks of bleeding and perforation. The procedure will be done with monitored anesthesia care. She will have a 2-day prep to achieve a good cleanout as she has had problems in the past with a single day prep resulting in a poor cleanout and suboptimal colonoscopy. She was given the below instructions regarding adjustment of her medication for the procedure. Her previous history of reflux and esophagitis seem to be clinically stable on her current regimen of her PPI. She is not having any symptoms or other problems to suggest the need for repeat upper endoscopy at this time. While she has had her previous bariatric surgery and theoretically does not make much, if any, acid in her stomach, I shall leave her on the PPI as that seems to be working well for her at this time. Levar was comfortable with this plan. Thank you again for allowing me to participate in Levar's care. I shall continue to keep you advised of her progress. Plan Of Treatment Pending Test Test Name Order Date COLONOSCOPY 01/20/2025 IRON + IBC (FE) 08/23/2020 FERRITIN 08/23/2020 FERRITIN 05/17/2020 VITAMIN B12 AND FOLATE 05/17/2020 CBC w DIFF 08/23/2020 CBC w DIFF 05/17/2020 Future Test Test Name Order Date COLONOSCOPY 05/03/2011 UPPER GI ENDOSCOPY 05/17/2020 COLONOSCOPY 05/17/2020 Next Appt Details Provider Name:Myron Mercado , 04/23/2025 10:30:00 AM, [address] [place] [address] , [place], [place], [id number], Insurance Providers Payer Name Payer Address Payer Phone Subscriber Number Group Number Insured Name Patient Relationship to Insured Coverage Start Date Coverage End Date MEDICARE OF [place] [address] [place] [address] [id number] KRISTIAN PINON Self - patient is the insured [employer] CLAIMS [address] [place] [address] [phone] [id number] KRISTIAN PINON Self - patient is the insured Medical (General) History Medical History History ICD Code ADD Tubular adenomas removed in 1997 and 2005 with me- her colonoscopy with me in 2010 was negative for polyps GERD-EGD in 2005 showed a HH and some es ophagitis Denies MT,DM,CVA,Lung disease,renal dise ase Colonoscopy in summer 2018 at [facility] was henson boptimal due to a poor prep Iron def anemia seen in 04/2020-started Iron Scoliosis Back pain- uses a [employer] system Colonoscopy in 05/2020 was normal Upper endoscopy in 05/2020 r evealed erosive esophagitis. Biopsies were negative for Khan's esophagus. There was a small hiatal hernia. The anastomosis from her previous bariatric surgery was normal. Migraine Normal CT of abdomen and pel vis in December of 2022 other than some constipation Vertigo Surgical History Surgery Date(Month/Year) Right hip surgery for a fracture from a fall Left hip replacement PAULETTE Other cosmetic surgery Gastric bypass surgery 2005 in [place]- l ost > 160_#
--- OUTSIDE RECORDS SUMMARY | 2025-04-22 15:31 | XMS_ITS | Encounter Summary ---
Author Organization [facility] Address [address] [place] [id number] Phone Care Team Providers Care Credit And Collections Representative Name Role Phone Lucien Woo MD Unavailable Adrian Padron MD Unavailable [phone] Levar Moreland MD Unavailable [phone] Lucien Woo MD Primary Care Provider [phone] Pcp, Unknown Primary Care Provider Unavailabl e Heather Vieyra MD Primary Care Provider + Heather Vieyra MD Primary Care Provider + Heatehr Vieyra MD Primary Care Provider + Encounter Details Date Type Department Care Team (Late st Contact Info) Description 01/14/2019 Procedure Pass [facility] Endoscopy Admitting Dept Virtual Department [address] [place] [phone] Social History Tobacco Use Types Packs/Day Years Used Date Smoking Tobacco: Never Smokeless Tobacco: Never Alcohol Use Standard Drinks/Week Comments Yes 0 (1 standard drink = 0.6 oz pur e alcohol) Rare Comments Unknown Sex and Gender Information Value Date Recorded Sex Assigned at Female 06/19/2018 6:04 PM EST Legal Sex Female 10:02 PM EDT Gender Identity Female 06/19/2018 6:04 PM EST Sexual Orientation Straight 06/19/2018 6: 04 PM EST documented as of this encounter Plan of Treatment Not on file documented as of this encounter Visit Diagnoses Not on filedocumented in this encounter Additional Health Concerns Infection Onset Date Last Indicated Resolved Time CoV-Exposed Comment:Recent close contact documented in the Travel/Symptom Screening Form 02/02/2022 02/13/2022 1:22 AM E DT CoV-Risk Comment:Neg covid 08/08/2022 08/08/2022 08/09/2022 7:[address] documented as of this encounter Care Teams Credit And Collections Representative Relationship Specialty Start Date End Date Lucien Woo MD [email or web address] PCP - General 08/01/17 01/04/23 Pcp, Unknown PCP - General 01/05/23 03/10/24 Heather Vieyra MD [email or web address] PCP - General Family Medicine 03/11/24 09/01/24 Heather Vieyra MD [address] [place] [phone] [email or web address] PCP - General Family Medicine 09/02/24 12/13/24 Heather Vieyra MD [address] [place] [address] [email or web address] PCP - General Family Medicine 12/14/24 Lucien Woo MD [email or web address] Historical LMR Provider 05/16/17 Adrian Padron MD [address] [place] [address], [address] [address] [email or web address] Historical LMR Provider 05/16/17 08/05/21 Levar Moreland MD [address] [place] [phone] Historical LMR Provider 05/16/17 2 documented as of this encounter Additional Source Comments The information contained in this document represents components of the legal health record. It is not the complete legal health record.[facility]
--- OUTSIDE RECORDS SUMMARY | 2025-04-22 15:32 | XMS_ITS | Encounter Summary ---
Author Organization [facility] Address [address] [place] [address] Phone Care Team Providers Care Break Off Worker Name Role Phone Lucien Woo MD Unavailable Heather Vieyra MD Primary Care Provider + Heather Vieyra MD Primary Care Provider + Encounter Details Date Type Department Care Team (Late st Contact Info) Description 09/03/2024 Procedure Pass [place] Admitting Dept - Virtual Department [address] [place] [address] Social History Tobacco Use Types Packs/Day Years [...] as food, clothing, or medical care? No 09/02/2024 In the past 12 months have y ou been in a relationship with a person who hurts, threatens, or tries to control you? No 09/02/2024 Are you denied basic needs s uch as food, clothing, or medical care? No 09/02/2024 In the past 12 months have y ou been in a relationship with a person who hurts, threatens, or tries to control you? No 09/02/2024 Comments No Sex and Gender Information Value [...] on filedocumented in this encounter Care Teams Break Off Worker Relationship Specialty Start Date End Date Heather Vieyra MD [address] [place] [phone] PCP - General Family Medicine 09/02/24 12/13/24 Heather Vieyra MD [address] [place] [address] PCP - General Family Medicine 12/14/24 Lucien Woo MD [email or web address] Historical LMR Provider 05/16/17 documented as of this encounter Additional Source Comments The information contained in this document represents components of the legal health record. It is not the complete legal health record.[facility]
--- OUTSIDE RECORDS SUMMARY | 2025-04-22 15:32 | XMS_ITS | Encounter Summary ---
Author Organization [facility] Address [address] [place] [phone] Phone Care Team Providers Care Quality Coordinator Name Role Phone Lucien Woo MD Unavailable Pcp, Unknown Primary Care Provider UnavailHeather Hardy MD Primary Care Provider + Heather Vieyra MD Primary Care Provider + Heather Vieyra MD Primary Care Provider + Encounter Details Date Type Department Care Team (Late st Contact Info) Description 01/05/2023 Procedure Pass [facility], Ct Scan - [address] [address] Social History Tobacco Use Types Packs/Day Years [...] as food, clothing, or medical care? No 01/05/2023 In the past 12 months have y ou been in a relationship with a person who hurts, threatens, or tries to control you? No 01/05/2023 Are you denied basic needs s uch as food, clothing, or medical care? No 01/05/2023 In the past 12 months have y ou been in a relationship with a person who hurts, threatens, or tries to control you? No 01/05/2023 Comments No Sex and Gender Information Value Date Recorded Sex Assigned at Female 06/19/2018 6:04 PM EST Legal Sex Female 10:02 PM EDT Gender Identity Female 06/19/2018 6:04 PM EST Sexual Orientation Straight 06/19/2018 6: 04 PM EST documented as of this encounter Functional Status * Calculated C-SSRS Risk Score (Lifetime/Recent) Answer Date of Assessment Author No Risk Indicated 01/05/2023 9:13 PM EDT Ovidio Schwartz RN * [place] Suicide Severity Rating Scale (Screener/Recent Self-Report) Question Answer Date of Assessment Author 1. Wish to be (Past 1 Month) No 023 9:13 PM EDT Ovidio Schwartz RN 2. Non-Specific Active Suici malvin Thoughts (Past 1 Month) No 01/05/2023 9:13 PM EDT Jhon Schwartz RN 6. Suicidal Behavior (Lifetime) No 9:13 PM EDT Ovidio Schwartz, RN documented as of this encounter Plan of Treatment Not on file documented as of this encounter Visit Diagnoses Not on filedocumented in this encounter Care Teams Quality Coordinator Relationship Specialty Start Date End Date Pcp, Unknown PCP - General 01/05/23 03/10/24 Heather Vieyra MD [email or web address] PCP - General Family Medicine 03/11/24 09/01/24 Heather Vieyra MD [address] [place] [phone] [email or web address] PCP - General Family Medicine 09/02/24 12/13/24 Heather Vieyra MD [address] [place] [phone] [email or web address] PCP - General Family Medicine 12/14/24 Lucien Woo MD [email or web address] Historical LMR Provider 05/16/17 documented as of this encounter Additional Source Comments The information contained in this document represents components of the legal health record. It is not the complete legal health record.[facility]
--- OUTSIDE RECORDS SUMMARY | 2025-04-22 15:32 | XMS_ITS | Clinical Summary ---
Author Organization Located Within [facility] Address [address] [place] [address] Phone Care Team Providers Care Conservation Worker Name Role Phone Renetta Woo MD Unavailable Heather Vieyra MD Primary Care Provider + Allergies Active Allergy Reactions Criticality Noted Date Comments Pollen Extracts Sneezing 03/26/2022 Medications dextroamphetami ne-amphetamine (ADDERALL) 20 mg Tab tablet Take 40 mg by mouth 2 (two) times a day. Active traZODone (DESYREL) 50 MG tablet Take 150 mg by mouth nightly at bedtime. Active albuterol 90 mcg/actuation inhalerIndicati ons:Uses Pro Air rarely Inhale 2 puffs into the lungs as needed for wheezing. Indications: Uses Pro Air rarely Active multivit with minerals/lutein (MULTIVITAMIN 50 PLUS ORAL) Active bacillus coagulans-inuli n 1 billion-250 cell-mg Cap Take 250 mg by mouth daily. Active vitamins A,C,E-zinc-danuta er (PRESERVISION AREDS) 14,320-226-200 lcoz-ng-rzht Cap Take 1 capsule by mouth 2 (two) times a day with meals. Active Medication-Free Text Lion's jason 1x daily Active Medication-Free Text virtron c Active DULoxetine (CYMBALTA) 60 MG capsule Take 60 mg by mouth daily. Active aspirin 325 MG tablet Take 1 tablet (325 mg total) by mouth daily for 28 days. 28 tablet 5 Active docusate sodium (COLACE) 100 MG capsule Take 1 capsule (100 mg total) by mouth 2 (two) times a day. 14 capsule Active Additional Information Patient not taking.Reported on 11/13/2024 omeprazole (PRILOSEC) 20 MG capsule Take 1 capsule (20 mg total) by mouth every morning. 60 capsule Active oxyCODONE 5 MG immediate release tablet Take 1 tablet (5 mg total) by mouth every 4 (four) hours as needed for pain (specific location in comments) (hip). Partial fill ok 8 tablet Active Additional Information Patient not taking.Reported on 09/18/2024 acetaminophen (TYLENOL) 325 mg tablet Take 3 tablets (975 mg total) by mouth every 8 (eight) hours as needed for pain (specific location in comments). Active topiramate (TOPAMAX) 25 MG tablet TAKE 1/2 TO 1 TABLET BY MOUTH EVERY NIGHT AT BEDTIME Active Active Problems Problem Noted Date Diagnosed Date Constipation 11/13/2024 Iron deficiency anemia 11/13/2024 Vitamin D deficiency 11/13/2024 EPIFANIO (acute kidney injury) 09/04/2024 Assessment & Plan (09/04/2024 11:06 AM EST): EPIFANIO postoperatively likely secondary to prerenal azotemia due to dehydration from decreased p.o. intake perioperatively. Baseline creatinine 0.6, creatinine 1.0. Patient also noted to have hyperkalemia plan for normal saline infusion and Kayexalate 09/04. -Repeat lab work this afternoon -Continue to monitor renal function -Avoid nephrotoxic agents -Consider nephrology consult if no improvement Closed nondisplaced intertro chanteric fracture of right femur, initial encounter 09/02/2024 Assessment & Plan (09/04/2024 11:03 AM EST): S/P mechanical fall on 09/02: CT revealed acute comminuted and mildly distracted intertrochanteric right femoral fracture status post mechanical fall at home -Has underlying history of osteoporosis, not on current medication, history of left hip arthroplasty as well On 09/03/2024 pt underwent: OPEN REDUCTION INTERNAL FIXATION FRACTURE FEMUR INTERTROCHANTERIC-Synthes trochanteric femoral nail, 12 diameter, 170 length, 105 mm helical blade lag, 36 mm distal interlock screw with Dr. Biggs. Pain control adequate at this time Scheduled Tylenol. Bowel regimen ordered DVT proph ASA 325 mg daily PT/OT Assessment & Plan (09/03/2024 3:14 PM EST): -CT revealed acute comminuted and mildly distracted intertrochanteric right femoral fracture status post mechanical fall at home -Has underlying history of osteoporosis, not on current medication, history of left hip arthroplasty as well Plan: - s/p OPEN REDUCTION INTERNAL FIXATION FRACTURE FEMUR INTERTROCHANTERIC-Synthes trochanteric femoral nail, 12 diameter, 170 length, 105 mm helical blade lag, 36 mm distal interlock screw on 09/03/[address] Biggs. Pain control adequate at this time Scheduled Tylenol. Bowel regimen ordered ASA 325 mg daily Assessment & Plan (09/02/2024 3:28 PM EST): -CT revealed acute comminuted and mildly distracted intertrochanteric right femoral fracture status post mechanical fall at home -Has underlying history of osteoporosis, not on current medication, history of left hip arthroplasty as well Plan: Orthopedic surgery consulted recommended n.p.o. after midnight for possible surgical repair CBC and BMP are relatively unremarkable, no prior cardiac history at this time Pain control adequate at this time, will place oxycodone 5 mg as needed for breakthrough pain Scheduled Tylenol. Thyroid nodule 08/08/2022 Assessment & Plan (08/08/2022 9:00 PM EST): Outpatient ultrasound can be pursued. 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 Overview (09/02/2024): sees prescriber Assessment & Plan (09/04/2024 7:35 AM EST): Adderall 40 mg twice daily, follows with psychiatry Underlying history of dementia is also on Cymbalta Plan: Continue Adderall Cymbalta 60 mg daily Assessment & Plan (09/03/2024 3:54 PM EST): Is on Adderall 40 mg twice daily, follows with psychiatry Underlying history of dementia is also on Cymbalta Plan: Continue Adderall Cymbalta 60 mg daily Assessment & Plan (09/02/2024 3:28 PM EST): Is on Adderall 40 mg twice daily, follows with psychiatry Underlying history of dementia is also on Cymbalta although does not know the dose at this time Plan: Continue Adderall, verify Cymbalta dose prior to resuming Gastroesophageal reflux disease 10/01/2006 Pure hypercholesterolemia 10/01/2006 Breast lump 05/08/2005 Osteoporosis 04/23/2005 Overview (11/13/2024): dr joel Morbid obesity 12/17/2002 Overview (11/13/2024): resolved after gastric bypass Removal Reason: resolved Primary osteoarthritis of left hip Resolved Problems Problem Noted Date Diagnosed Date Resolved Date Dizziness 08/08/2022 08/09/2022 Assessment & Plan (08/08/2022 8:54 PM EST): Concern for TIA/CVA from ED physician and neurology. We will give aspirin and statin. We will check an MRI brain. Will monitor on telemetry. Also, likely that this is related to her new CBD Gummies that she just started today. She states that the strength is the same, but it was a different package than her normal. Additionally, she states that her did not feel well after taking them. She will have as needed nausea medications. Immunizations Immunization Administration Dates Next Due Td (adult),2 Lf Tetanus Toxoid, PF, Adsorbed 02/2023 Family History Medical History Relation Comments Heart disease Father Diabetes Mother Relation Status Comments Father Mother Social History Tobacco Use Types Packs/Day Years Used Date Smoking Tobacco: Former Cigarettes 1 10 Smokeless Tobacco: Never Tobacco Cessation:Counseling Given: Not Answered Alcohol Use Standard Drinks/Week Comments Yes 0 [...] Orientation Straight 06/19/2018 6: 04 PM EST Last Filed Vital Signs Vital Sign Reading Time Taken Comments Blood Pressure 121/78 11/13/2024 5:37 PM EDT Pulse 85 11/13/2024 5:37 PM EDT Temperature 36.8 C (98.3 F) 11/13/2024 5:37 PM EDT Respiratory Rate 16 11/13/2024 5:37 PM EDT Oxygen Saturation 100% 11/13/2024 5:37 PM EDT Inhaled Oxygen Concentration - - Weight 57.6 kg (127 lb) 11/13/2024 5:37 PM EDT Height 165.1 cm (5' 5 ) 11/13/2024 5:37 PM EDT Body Mass Index 21.13 11/13/2024 5:37 PM EDT Plan of Treatment Health Maintenance Due Date Last Done Comments DEPRESSION SCREENING 1962 SMOKING Hx and SMOKELESS TOBACCO SCREENING 1963 HEPATITIS C SCREENING 1968 COLOGUARD 1995 FIT TEST 1995 FOBT 1995 SIGMOIDOSCOPY 1995 VIRTUAL COLONOSCOPY 1995 MAMMOGRAM 12/01/2009 12/02/2007, 09/29/2007 OSTEOPOROSIS SCREENING INITIAL (ONE-TIME) 2015 INFLUENZA VACCINE (#1) 2025 , 06/07/2023, 05/15/2022, Additional history exists COVID-19 VACCINE ( season) 2025 06/05/2024, 06/27/2023, 05/15/2022, Additional history exists LIPID PANEL 08/09/2027 08/09/2022, 04/23/2005 COLONOSCOPY 01/14/2029 01/14/2019 COLORECTAL CANCER SCREENING 01/14/2029 Adult Td,Tdap Booster 06/05/2033 06/05/2023 , 09/24/2013, 03/20/2010, Additional history exists ZOSTER VACCINES Completed 08/06/2018, 10/27, 12/18/2012 PNEUMOCOCCAL VACCINES (50+ years) Completed 11/16/2021, 11/08/2017, 05/18/2015 RSV VACCINE Completed 09/16/2023 HEPATITIS A VACCINES Aged Out No long er eligible based on patient's age to complete this topic HIB VACCINES Aged Out No longer eligi ble based on patient's age to complete this topic MENINGOCOCCAL VACCINES (ACWY) Aged Out No longer eligible based on patient's age to complete this topic MENINGOCOCCAL VACCINES (B) Aged Out N o longer eligible based on patient's age to complete this topic Medical Devices Implanted Type Area Major Gifts Director Device Identifier Shelf Expiration Date Model / Serial / Lot Hip 36mm 0 G7 Marcus Type 1 Standard - [id number] Implanted:Qt y: 1 on 02/28/2021 by Jose Hamilton MD at [facility] STANDARD Left: Acetabulum [employer] 12/02/2030 [id number] / / [id number] Hip Shell 56mm Acetabular Finned G7 - [id number] Implanted:Qt y: 1 on 02/28/2021 by Jose Hamilton MD at [facility] Left: Acetabulum [employer] 08/19/2030 [id number] / / [id number] Hip Liner 36mm F Acetabular High Wall G7 Longevity - [id number] Implanted:Qt y: 1 on 02/28/2021 by Jose Hamilton MD at [facility] Left: Acetabulum [employer] 12/05/2025 [id number] / / [id number] Hip Stem 1 Size Taperloc Pps Coated Complete Reduced High Offset Type 22 - [id number] Implanted:Qt y: 1 on 02/28/2021 by Jose Hamilton MD at [facility] Left: Acetabulum [employer] 09/09/2029 [id number] / / [id number] Nail Bone [id number] Short 130deg Tfn Advanced Femoral Cannulated Ti Neck - [id number] Implanted:Qt y: 1 on 09/03/2024 by Myron Biggs MD at [facility] Right: Femur [employer] [id number] 05/28/2034 [id number] S / / [id number] Blade Bone 10.8f057ez Helical Tfn Advanced - [id number] Implanted:Qt y: 1 on 09/03/2024 by Myron Biggs MD at [facility] Right: Femur [employer] [id number] 11/25/2032 04.038.405 S / / [id number] Screw Bone 5x36mm Locking Im Nail - [id number] Implanted:Qt y: 1 on 09/03/2024 by Myron Biggs MD at [facility] Right: Femur [employer] [id number] 04/27/2032 04.045.036 S / / [id number] Procedures Procedure Name Priority Date/Time Associated Diagnosis Comments LIPID PANEL Routine 08/09/2022 6:41 AM EST ENDOSCOPY, COLON 01/14/2019 10:1 4 AM EDT from Last 3 Months or Most Recently Relevant to Health Maintenance Results * (ABNORMAL) Lipid panel (08/09/2022 6:41 AM EST) HDL 67 mg/dL [facility] Comment: Interpretation <40 mg/dL: Low HDL cholesterol (major risk factor for CHD) Greater than or equal to 60 mg/dL: High HDL cholesterol ( negative risk factor for CHD) HDL - cholesterol is affected by a number of factors, e.g. smoking, excerise, hormones, sex and age. CHOLESTEROL 175 0 - 240 mg/dL [facility] TRIGLYCERIDES 46 30 - 160 mg/dL [facility] LDL 99 50 - 129 mg/dL [facility] Comment: LDL levels in terms of risk for coronary heart disease: <100 mg/dL: Optimal 100-129 mg/dL: Near or above optimal 130-159 mg/dL: Borderline high 160-189 mg/dL: High >190 mg/dL: Very High CARDIAC RISK RATIO 2.6(L) 3.3 - 4.4 C [facility] Blood 08/09/2022 6:41 AM EST 08/09/2022 7:16 AM EST us Suleiman Bailey DO LAB BLOOD ORDERABLES Final Re sult [facility] [address] [place] [address] * ENDOSCOPY, COLON (01/14/2019 10:14 AM EDT) Narrative Transcriptions Jey Nuno MD - 01/14/2019 10:14 AM EDT Patient Name: Matildaarnoldo Leach Attending MD:: JEY NUNO MD Procedure Date: 01/14/2019 10:14 AM Date of : 1950 Age: 68 Admit Type: Outpatient Gender: Female Room: [facility] 05 Referring MD: RENETTA WOO MD Exam Type: Colonoscopy Indications: High risk colon cancer surveillance: Personal historyof colonic polyps, Surveillance: Personal history ofcolonic polyps (unknown histology) on last colonoscopy morethan 5 years ago Medications: Monitored Anesthesia Care Procedure: Informed consent was obtained from the patient after discussion of the indications, limitations,alternatives, benefits, and risks of the procedure. Risksspecifically discussed include but are not limited to medication reactions, missed lesions, bleeding, perforation, orthe need for emergent surgery. Throughout the procedure, the patient's blood pressure, pulse, end-tidal CO2, and oxygen saturations were monitored continuously. The Olympus adult variable colonoscope CF-FO536L #5 was introduced through the anus and advanced to the cecum, identified by the appendiceal orifice, ileocecal valveand palpation. The colonoscopy was performed with moderate difficulty due to inadequate bowel prep. The patient tolerated the procedure. The quality of the bowel preparation was fair. Complications: No immediate complications. Estimated blood loss:None. Findings: The digital rectal exam findings include decreased sphincter tone. A large amount of semi-liquid stool was found in the recto-sigmoid colon, in the ascending colon and in the cecum, interfering with visualization. Despiteaggressive suctioning moderate amount of stool residue remained. The exam was otherwise without abnormality on directand retroflexion views. Impression: - Preparation of the colon was fair. - Decreased sphincter tone found on digital rectalexam. - Stool in the recto-sigmoid colon, in the ascendingcolon and in the cecum. - The examination was otherwise normal on direct and retroflexion views. - No specimens collected. Recommendation: - Repeat colonoscopy in 2 years because the bowel preparation was suboptimal with 2 day prep. JEY NUNO MD 01/14/2019 10:46:04 AM This report has been signed electronically. Number of Addenda: 0 Note Initiated On: 01/14/2019 10:14 AM Procedure Code(s): --- Professional --- 64525, Colonoscopy, flexible; diagnostic, including collection of specimen(s) by brushing or washing, when performed (separateprocedure) --- Technical --- 53588, Colonoscopy, flexible; diagnostic, including collection of specimen(s) by brushing or washing, when performed (separateprocedure) Diagnosis Code(s): --- Professional --- Z86.010, Personal history of colonic polyps --- Technical --- Z86.010, Personal history of colonic polyps CPT copyright 2016 [employer]. All rights reserved. The codes documented in this report are preliminary and upon marine gear keeper reviewmay be revised to meet current compliance requirements. [address] [place] [address] Renetta Woo MD GI PROCEDURE ORDERABLES Final Re sult from Last 3 Months or Most Recently Relevant to Health Maintenance Insurance MEDICARE PART A & B [employer] CR[employer] MEDEX SUPPLEMENT MEDICARE PART A & B [employer] MEDEX SUPPLEMENT MEDICARE PART A & B [employer] MEDEX SUPPLEMENT MEDICARE PART A & B [employer] MEDEX SUPPLEMENT MEDICARE PART A & B [employer] MEDEX SUPPLEMENT MEDICARE PART A & B [facility] MEDEX SUPPLEMENT MEDICARE PART A & B [employer] MEDEX SUPPLEMENT MEDICARE PART A & B [employer] MEDEX SUPPLEMENT MEDICARE PART A & B [employer] MEDEX SUPPLEMENT Advance Directives For more information, please contact: [phone] (9AM - 5PM [facility], Saturday-Saturday) Documents on File Type Date Recorded Patient Enterprise Analyst Expl anation Power of Gerontology Aide * Full Code (Latest Code Status on File) Date Activated Date Inactivated Comments 09/02/2024 8:26 PM Question Answer Comments Code Status Confirmed With: Patient Code Status Communicated To: Inpatient Attending * Full Code Date Activated Date Inactivated Comments 08/08/2022 9:51 PM 09/02/2024 8:26 PM Question Answer Comments Code Status Confirmed With: Patient * Full Code Date Activated Date Inactivated Comments 02/28/2021 12:54 PM 08/08/2022 9:51 PM Question Answer Comments Code Status Confirmed With: Patient Code Status Communicated To: Inpatient Attending Care Teams Conservation Worker Relationship Specialty Start Date End Date Heather Vieyra MD [address] [place] [address] [email or web address] PCP - General Family Medicine 12/14/24 Renetta Woo MD Historical LMR Provider 05/16/17 Additional Source Comments The information contained in this document represents components of the legal health record. It is not the complete legal health record.Loc[facility]
--- OUTSIDE RECORDS SUMMARY | 2025-04-22 15:32 | XMS_ITS | Encounter Summary ---
Author Organization [facility] Address [address] [place] [phone] Phone Care Team Providers Care Credit Front Office Developer Name Role Phone Lucien oWo MD Unavailable Heather Vieyra MD Primary Care Provider + Heather Vieyra MD Primary Care Provider + Heather Vieyra MD Primary Care Provider + Encounter Details Date Type Department Care Team (Latest Contact Info) Description 04/08/2024 Transcribe Orders Virtual Department [address] [place] [address] Phill Horton MD [address] [place] [phone] [email or web address] Age-related osteoporosis without current pathological fracture (Primary Dx) Social History Tobacco Use Types Packs/Day Years [...] as of this encounter Plan of Treatment Scheduled Orders Name Type Priority Associated Diagnoses Orde r Schedule DXA Screening Imaging Routine Age-related osteoporosis without current pathological fracture Expected: 05/08/2024, Expires: 04/08/2025 documented as of this encounter Visit Diagnoses Diagnosis Age-related osteoporosis without current pathological fracture- Primary documented in this encounter Care Teams Credit Front Office Developer Relationship Specialty Start Date End Date Heather Vieyra MD [email or web address] PCP - General Family Medicine 03/11/24 09/01/24 Heather Vieyra MD [address] [place] [phone] [email or web address] PCP - General Family Medicine 09/02/24 12/13/24 Heather Vieyra MD [address] [place] [phone] [email or web address] PCP - General Family Medicine 12/14/24 Lucien Woo MD [email or web address] Historical LMR Provider 05/16/17 documented as of this encounter Additional Source Comments The information contained in this document represents components of the legal health record. It is not the complete legal health record.[facility]
--- OUTSIDE RECORDS SUMMARY | 2025-04-22 15:32 | XMS_ITS | Encounter Summary ---
Author Organization [facility] Address [address] [place] [phone] Phone Care Team Providers Care Furniture Dipper Name Role Phone Lucien Woo MD Unavailable Lucien Woo MD Primary Care Provider Pcp, Unknown Primary Care Provider Unavailabl e Heather Vieyra MD Primary Care Provider + Heather Vieyra MD Primary Care Provider + Heather Vieyra MD Primary Care Provider + Encounter Details Date Type Department Care Team (Late st Contact Info) Description 08/08/2022 Procedure Pass [facility], [address] [address] Social History Tobacco Use Types Packs/Day Years Used Date Smoking Tobacco: Former Cigarettes 1 10 Smokeless Tobacco: Never Alcohol Use Standard Drinks/Week Comments Yes 0 (1 standard drink = 0.6 oz pur e alcohol) Comments No Sex and Gender Information Value Date Recorded Sex Assigned at Female 06/19/2018 6:04 PM EST Legal Sex Female 10:02 PM EDT Gender Identity Female 06/19/2018 6:04 PM EST Sexual Orientation Straight 06/19/2018 6: 04 PM EST documented as of this encounter Functional Status * Calculated C-SSRS Risk Score (Lifetime/Recent) Answer Date of Assessment Author No Risk Indicated 08/08/2022 3:09 PM EST Jovana Fox RN * [place] Suicide Severity Rating Scale (Screener/Recent Self-Report) Question Answer Date of Assessment Author 1. Wish to be (Past 1 Month) No 08/08/2022 3:09 PM EST Jovana Fox, AMRIK 2. Non-Specific Active Suici malvin Thoughts (Past 1 Month) No 08/08/2022 3:09 PM EST Jovana Fox, AMRIK 6. Suicidal Behavior (Lifetime) No 3:09 PM EST Jovana Fox, AMRIK documented as of this encounter Plan of Treatment Not on file documented as of this encounter Visit Diagnoses Not on filedocumented in this encounter Additional Health Concerns Infection Onset Date Last Indicated Resolved Time CoV-Risk Comment:Neg covid 08/08/2022 08/08/2022 08/09/2022 7:[address] documented as of this encounter Care Teams Furniture Dipper Relationship Specialty Start Date End Date Lucien Woo MD [email or web address] PCP - General 08/01/17 01/04/23 Pcp, Unknown PCP - General 01/05/23 03/10/24 Heather Vieyra MD [email or web address] [email or web address] - General Family Medicine 03/11/24 09/01/24 Heather Vieyra MD [address] [place] [phone] [email or web address] - General Family Medicine 09/02/24 12/13/24 Heather Vieyra MD [address] [place] [address] [email or web address] PCP - General Family Medicine 12/14/24 Lucien Woo MD [email or web address] Historical LMR Provider 05/16/17 documented as of this encounter Additional Source Comments The information contained in this document represents components of the legal health record. It is not the complete legal health record.[facility]
--- OUTSIDE RECORDS SUMMARY | 2025-04-22 15:32 | XMS_ITS | Encounter Summary ---
Author Organization [facility] Address [address] [place] [address] Phone Care Team Providers Care Jewelry Model Maker Name Role Phone Lucien Woo MD Unavailable Lucien Woo MD Primary Care Provider [phone] Pcp, Unknown Primary Care Provider Rodney Heather Vieyra MD Primary Care Provider + Heather Vieyra MD Primary Care Provider + Heather Vieyra MD Primary Care Provider + Reason for Referral * MRI/CAT Scan - Closed Specialty Diagnoses / Procedures Referred By Forrest richardson Referred To Contact Radiology Diagnoses Ataxia Nonintractable headache, unspecified chronicity pattern, unspecified headache type Procedures MRI Brain Onesimo Juarez MD Phone: tel: fax: [email or web address] Referral ID Status Reason Start Date Expiration Date Visits Re quested Visits Authorized [id number] Closed 10/13/2021 10/13/2022 1 1 Encounter Details Date Type Department Care Team (Latest Contact Info) Description 10/13/2021 Transcribe Orders [facility] Department [address] [place] [phone] Onesimo Juarez MD [address] [place] [address], [address] [place], [place] [id number] [email or web address] Ataxia (Primary Dx); Nonintractable headache, unspecified chronicity pattern, unspecified headache type Social History Tobacco Use Types Packs/Day Years [...] on file documented as of this encounter Results * MRI BRAIN WITHOUT CONTRAST (10/31/2021 4:36 PM EDT) Anatomical Region Laterality Modality Head Magnetic Resonan ce 10/31/2021 4:38 PM EDT Impressions 10/31/2021 4:43 PM EDT Mild generalized atrophy. Otherwise normal non-enhanced MRI appearance of the brain. POS [id number] Narrative 10/31/2021 4:43 PM EDT TECHNIQUE: 1.5 Katelin scanner. Nonenhanced exam. No comparison FINDINGS: No signal changes indicative of ischemia, infarct, hemorrhage, mass, demyelinating disease or an inflammatory process. Normal ventricular size and configuration. Basilar cisterns widely patent. No cerebellar tonsillar ectopia nor signs of elevated intracranial pressure. Mild generalized atrophy is age-appropriate. No pituitary, pineal region, IAC or intraorbital pathology. Normal flow-voids in the major vessels of the [place] and the dural venous sinuses. No inflammatory changes in the paranasal sinuses or the mastoid air cells. Procedure Note Víctor Patiño MD - 10/31/2021 TECHNIQUE: 1.5 Katelin scanner. Nonenhanced exam. No comparison FINDINGS: No signal changes indicative of ischemia, infarct, hemorrhage, mass,demyelinating disease or an inflammatory process. Normal ventricular size and configuration. Basilar cisterns widely patent. No cerebellar tonsillar ectopia nor signsof elevated intracranial pressure. Mild generalized atrophy is age-appropriate. No pituitary, pineal region, IAC or intraorbital pathology. Normal flow-voids in the major vessels of the [place] and thedural venous sinuses. No inflammatory changes in the paranasal sinuses or the mastoid aircells. IMPRESSION: Mild generalized atrophy. Otherwise normal non-enhanced MRI appearance ofthe brain. POS [id number] Onesimo Juarez MD IMG MR HEAD/NECK Final Resul t documented in this encounter Visit Diagnoses Diagnosis Ataxia- Primary Lack of coordination Nonintractable headache, unspecified chronicity pattern, unspecified headache type Ataxia Lack of coordination Nonintractable headache, unspecified chronicity pattern, unspecified headache type documented in this encounter Additional Health Concerns Infection Onset Date Last Indicated Resolved Time CoV-Exposed Comment:Recent close contact documented in the Travel/Symptom Screening Form 02/02/2022 02/13/2022 1:22 AM E DT CoV-Risk Comment:Neg covid 08/08/2022 08/08/2022 08/09/2022 7:25 AM EST documented as of this encounter Care Teams Jewelry Model Maker Relationship Specialty Start Date End Date Lucien Woo MD [email or web address] PCP - General 08/01/17 01/04/23 Pcp, Unknown PCP - General 01/05/23 03/10/24 Heather Vieyra MD [email or web address] PCP - General Family Medicine 03/11/24 09/01/24 Heather Vieyra MD [address] [place] [phone] [email or web address] PCP - General Family Medicine 09/02/24 12/13/24 Heather Vieyra MD [address] [place] [phone] [email or web address] PCP - General Family Medicine 12/14/24 Lucien Woo MD [email or web address] Historical LMR Provider 05/16/17 documented as of this encounter Additional Source Comments The information contained in this document represents components of the legal health record. It is not the complete legal health record.[facility]
--- OUTSIDE RECORDS SUMMARY | 2025-04-22 15:32 | XMS_ITS | Encounter Summary ---
Author Organization [facility] Address [address] [place] [address] Phone Care Team Providers Care Residency Program Coordinator Name Role Phone Lucien Woo MD Unavailable Lucien Woo MD Primary Care Provider [phone] Pcp, Unknown Primary Care Provider Unavailabl e Heather Vieyra MD Primary Care Provider + Heather Vieyra MD Primary Care Provider + Heather Vieyra MD Primary Care Provider + Encounter Details Date Type Department Care Team (Late st Contact Info) Description 08/08/2022 Procedure Pass [facility], Ct Scan - [address] [address] Social History Tobacco Use Types Packs/Day Years [...] 3:09 PM EST Jovana Fox RN * [place] Suicide Severity Rating Scale (Screener/Recent Self-Report) Question Answer Date of Assessment Author 1. Wish to be (Past 1 Month) No 08/08/2022 3:09 PM EST Jovana Fox RN 2. Non-Specific Active Suici malvin Thoughts (Past 1 Month) No 08/08/2022 3:09 PM EST Jovana Fox, AMRIK 6. Suicidal Behavior (Lifetime) No 3:09 PM EST Jovana Fox RN documented as of this encounter Plan of Treatment Not on file documented as of this encounter Visit Diagnoses Not on filedocumented in this encounter Additional Health Concerns Infection Onset Date Last Indicated Resolved Time CoV-Risk Comment:Neg covid 08/08/2022 08/08/2022 08/09/2022 7:[address] documented as of this encounter Care Teams Residency Program Coordinator Relationship Specialty Start Date End Date Lucien Woo MD [email or web address] PCP - General 08/01/17 01/04/23 Pcp, Unknown PCP - General 01/05/23 03/10/24 Heather Vieyra MD [email or web address] PCP - General Family Medicine 03/11/24 09/01/24 Heather Vieyra MD [address] [place] [phone] [email or web address] PCP - General Family Medicine 09/02/24 12/13/24 Heather Vieyra MD [address] [place] [address] [email or web address] PCP - General Family Medicine 12/14/24 Lucien Woo MD [email or web address] Historical LMR Provider 05/16/17 documented as of this encounter Additional Source Comments The information contained in this document represents components of the legal health record. It is not the complete legal health record.[facility]
--- OUTSIDE RECORDS SUMMARY | 2025-04-22 15:32 | XMS_ITS | Encounter Summary ---
Author Organization [facility] Address [address] [place] [address] [place] [address] Phone Care Team Providers Care Child Specialist Name Role Phone Lucien Woo MD Unavailable Heather Vieyra MD Primary Care Provider + Heather Vieyra MD Primary Care Provider + Encounter Details Date Type Department Care Team (Late st Contact Info) Description 09/02/2024 Procedure Pass [facility], Ct Scan - [address] [address] Social History Tobacco Use Types Packs/Day Years [...] Date of Assessment Author No Risk Indicated 09/02/2024 11:14 AM Demetra Villeda RN * [place] Suicide Severity Rating Scale (Screener/Recent Self-Report) Question Answer Date of Assessment Author 1. Wish to be (Past 1 Month) No 025 11:14 AM Demetra Villeda RN 2. Non-Specific Active Suici malvin Thoughts (Past 1 Month) No 09/02/2024 11:14 AM Neva Villeda RN 6. Suicidal Behavior (Lifetime) No 11:14 AM Demetra Villeda RN documented as of this encounter Plan of Treatment Not on file documented as of this encounter Visit Diagnoses Not on filedocumented in this encounter Care Teams Child Specialist Relationship Specialty Start Date End Date Heather Vieyra MD [address] [place] [phone] [email or web address] PCP - General Family Medicine 09/02/24 12/13/24 Heather Vieyra MD [address] [place] [address] [email or web address] PCP - General Family Medicine 12/14/24 Lucien Woo MD [email or web address] Historical LMR Provider 05/16/17 documented as of this encounter Additional Source Comments The information contained in this document represents components of the legal health record. It is not the complete legal health record.[facility]
--- OUTSIDE RECORDS SUMMARY | 2025-04-22 15:32 | XMS_ITS | Encounter Summary ---
Author Organization [facility] Address [address] [place] [address] Phone Care Team Providers Care Applications System Analyst Name Role Phone Lucien Woo MD Unavailable Lucien Woo MD Primary Care Provider Pcp, Unknown Primary Care Provider Unavailabl e Heather Vieyra MD Primary Care Provider + Heather Vieyra MD Primary Care Provider + Heather Vieyra MD Primary Care Provider + Encounter Details Date Type Department Care Team (Latest Contact Info) Description 05/18/2022 Transcribe Orders Virtual Department [address] [place] [address] Lucien Woo MD [address] [place] [address] [email or web address] Dizziness and giddiness (Primary Dx) Social History Tobacco Use Types [...] as of this encounter Visit Diagnoses Diagnosis Dizziness and giddiness- Primary documented in this encounter Additional Health Concerns Infection Onset Date Last Indicated Resolved Time CoV-Risk Comment:Neg covid 08/08/2022 08/08/2022 08/09/2022 7:[address] documented as of this encounter Care Teams Applications System Analyst Relationship Specialty Start Date End Date Lucien Woo MD PCP - General 08/01/17 01/04/23 Pcp, Unknown PCP - General 01/05/23 03/10/24 Heather Vieyra MD [email or web address] PCP - General Family Medicine 03/11/24 09/01/24 Heather Vieyra MD [address] [place] [phone] [email or web address] PCP - General Family Medicine 09/02/24 12/13/24 Heather Vieyra MD [address] [place] [address] [email or web address] PCP - General Family Medicine 12/14/24 Lucien Woo MD [email or web address] Historical LMR Provider 05/16/17 documented as of this encounter Additional Source Comments The information contained in this document represents components of the legal health record. It is not the complete legal health record.[facility]
--- OUTSIDE RECORDS SUMMARY | 2025-04-22 15:32 | XMS_ITS | Encounter Summary ---
Author Organization [facility] Address [address] [place] [address] Phone Care Team Providers Care Cut Out Marker Name Role Phone Lucien Woo MD Unavailable Lucien Woo MD Primary Care Provider [phone] Pcp, Unknown Primary Care Provider Unavailabl e Heather Vieyra MD Primary Care Provider + Heather Vieyra MD Primary Care Provider + Heather Vieyra MD Primary Care Provider + Encounter Details Date Type Department Care Team (Late st Contact Info) Description 10/13/2021 Procedure Pass [facility], [address] [address] Social History Tobacco Use Types Packs/Day Years [...] documented as of this encounter Care Teams Cut Out Marker Relationship Specialty Start Date End Date Lucien Woo MD PCP - General 08/01/17 01/04/23 Pcp, Unknown PCP - General 01/05/23 03/10/24 Heather Vieyra MD [email or web address] PCP - General Family Medicine 03/11/24 09/01/24 Heather Vieyra MD [address] [place] [phone] [email or web address] [email or web address] - General Family Medicine 09/02/24 12/13/24 Heather Vieyra MD [address] [place] [address] [email or web address] PCP - General Family Medicine 12/14/24 Lucien Woo MD [email or web address] Historical LMR Provider 05/16/17 documented as of this encounter Additional Source Comments The information contained in this document represents components of the legal health record. It is not the complete legal health record.[facility]
--- OUTSIDE RECORDS SUMMARY | 2025-04-22 15:33 | XMS_ITS | Encounter Summary ---
Author Organization [facility] Address [address] [place] [address] Phone Care Team Providers Care Irrigator Name Role Phone Lucien Woo MD Unavailable Adrian Padron MD Unavailable [phone] Levar Moreland MD Unavailable [phone] Lucien Woo MD Primary Care Provider [phone] Pcp, Unknown Primary Care Provider Unavailabl e Heather Vieyra MD Primary Care Provider + Heather Vieyra MD Primary Care Provider + Heather Vieyra MD Primary Care Provider + Encounter Details Date Type Department Care Team (Late st Contact Info) Description 02/28/2021 Procedure Pass [place] Admitting Dept - Virtual Department [address] [place] [address] Social History Tobacco Use Types Packs/Day Years [...] Date of Assessment Author No Risk Indicated 02/28/2021 1:32 PM EDT Odilia Melo RN * [place] Suicide Severity Rating Scale (Screener/Recent Self-Report) Question Answer Date of Assessment Author 1. Wish to be (Past 1 Month) No 02/28/2021 1:32 PM EDT Odilia Melo RN 2. Non-Specific Active Suici malvin Thoughts (Past 1 Month) No 02/28/2021 1:32 PM EDT Marilyn Melo cia, RN 6. Suicidal Behavior (Lifetime) No 1:32 PM EDT Odilia Melo RN documented as of this encounter Plan [...] documented as of this encounter Care Teams Irrigator Relationship Specialty Start Date End Date Lucien Woo MD [email or web address] PCP - General 08/01/17 01/04/23 Pcp, Unknown PCP - General 01/05/23 03/10/24 Heather Vieyra MD [email or web address] PCP - General Family Medicine 03/11/24 09/01/24 Heather Vieyra MD [address] [place] [phone] [email or web address] PCP - General Family Medicine 09/02/24 12/13/24 Heather Vieyra MD [address] [place] [phone] [email or web address] PCP - General Family Medicine 12/14/24 Lucien Woo MD Historical LMR Provider 05/16/17 Adrian Padron MD [address] [place] [address] [email or web address] Historical LMR Provider 05/16/17 08/05/21 Levar Moreland MD [address] [place] [address] Historical LMR Provider 05/16/17 2 documented as of this encounter Additional Source Comments The information contained in this document represents components of the legal health record. It is not the complete legal health record.[facility]
[2025-04-23 11:13] VITALS: BMI 17.8
[2025-04-23 11:15] VITALS: BP 109/78; PULSE 84; RESP 15; TEMP 36.8; O2SAT 98
[2025-04-23 13:00] VITALS: BP 101/63; PULSE 85; TEMP 36.3; O2SAT 100
--- NOTE | 2025-04-23 13:09 | P.BOP_ITS ---
Brief Operative Note Date of Service: 04/23/25 Pre-op diagnosis: Screening Post-op diagnosis: other (Diverticulosis) Procedure: Colonoscopy to the cecum and TI Surgeon: Myron Mercado MD Anesthesia: MAC Was an Dry Cell Assembly Supervisor used for this Procedure?: No Estimated blood loss (mL): 0 Pathology: none sent Condition: stable Disposition: PACU
[2025-04-23 13:15] VITALS: BP 105/66; PULSE 81; RESP 16; TEMP 36.6; O2SAT 100
--- NOTE | 2025-04-23 14:31 | OP_ITS ---
DATE OF SERVICE: 04/23/2025 SURGEON: Myron Mercado MD INDICATIONS: The patient presents for followup of colorectal cancer screening and personal history of tubular adenoma of the colon. Full consent has been obtained from her for this, including risks of bleeding and perforation. PREOPERATIVE DIAGNOSIS: POSTOPERATIVE DIAGNOSIS: PROCEDURE PERFORMED: Colonoscopy to the cecum and terminal ileum. ESTIMATED BLOOD LOSS: COMPLICATIONS: ANESTHESIA: Monitored anesthesia care. ASSISTANTS: SPECIMENS: PREOPERATIVE DIAGNOSES: Colorectal cancer screening and personal history of tubular adenoma of the colon. POSTOPERATIVE DIAGNOSES: Colorectal cancer screening and personal history of tubular adenoma of the colon, diverticulosis, and internal hemorrhoids. DESCRIPTION OF PROCEDURE: The patient was placed in the left lateral decubitus position. The digital rectal exam revealed no abnormalities. The Olympus video pediatric colonoscope was entered into the rectum and advanced easily to the cecum. Once in the cecum, I did identify a normal-appearing cecal pouch with appendiceal orifice and a normal-appearing ileocecal valve. The terminal ileum was cannulated and appeared normal. The scope was withdrawn back in the colon. The entire cecum and ileocecal valve were well visualized and appeared normal.. The scope was then slowly withdrawn assessing all mucosal surfaces carefully. Preparation was for the most part excellent after her 2 day prep. There was some minimal amount of liquid stool, which was irrigated and suctioned away. I did not visualize any sign of polyps, colitis, nor angiodysplasia. There was a mild amount of sigmoid diverticulosis. In the rectum, scope was retroflexed visualizing internal hemorrhoids, but no other pathology. The rectal mucosa appeared normal. The scope was straightened and withdrawn from the patient. She tolerated the procedure well and was returned to the recovery area in stable condition. IMPRESSION: 1. Diverticulosis. 2. Internal hemorrhoids. PLAN: Given today's negative exam and her age, I do not think she will need any further screening colonoscopies. She was advised that she could resume her iron today. She will otherwise see me on a p.r.n. basis. This has been discussed with her . MD WILLAM Juarez/ANTONINO / [id number] MTDD
== END 2025-04-23 13:58 | disposition home or self-care (01) ==
PROVIDERS: PCP Family Medicine; Visit Provider Internal Medicine
PROC: 0DJD8ZZ Inspection of Lower Intestinal Tract, Via Natural or Artificial Opening Endoscopic (ICD-10-PCS; CPT 45378; principal; 2025-04-23 10:30)
DX: Z12.11 Encounter for screening for malignant neoplasm of colon (principal); Z86.0101 Personal history of adenomatous and serrated colon polyps; K57.30 Diverticulosis of large intestine without perforation or abscess without bleeding; K64.8 Other hemorrhoids; K21.9 Gastro-esophageal reflux disease without esophagitis; K59.00 Constipation, unspecified; D50.9 Iron deficiency anemia, unspecified; F98.8 Other specified behavioral and emotional disorders with onset usually occurring in childhood and adolescence; M41.9 Scoliosis, unspecified; G43.909 Migraine, unspecified, not intractable, without status migrainosus; Z79.1 Long term (current) use of non-steroidal anti-inflammatories (NSAID); Z79.899 Other long term (current) drug therapy; Z88.1 Allergy status to other antibiotic agents; Z98.84 Bariatric surgery status; Z98.890 Other specified postprocedural states
CPT/HCPCS: G0105; J2003; J2704; J3010